=== PATIENT | male | born 1990 | race Caucasian/White ===

== ENCOUNTER 2018-03-22 23:37 | Emergency (ER) | payer MEDICAID, OTHER ==
[~2018-03-22] VITALS: Ht 188 cm; Wt 108.9 kg
--- NOTE | 2018-03-22 23:41 | NUR ---
PT BIBA TO ER BED 12
--- NOTE | 2018-03-22 23:43 | NUR ---
PATIENT IS A 27 Y/O MALE WHO PRESENTS TO THE ED C/O ALTERED LEVEL OF CONSCIOUSNESS. PER PD PT WAS BEING COMBATIVE S/P TAKING METH. PT APPEARS FLUSHED AND RED. PT IN NO SIGNS OF CP, SOB, N/V/D. PT ALTERED, BEING COMBATIVE AND YELLING OBSCENITIES, RR EVEN/UNLABORED. PT REPOSITIONED FOR COMFORT, BED IN LOWEST POSITION. ER MD DR. MOONEY NOTIFIED. WILL CONTINUE TO MONITOR.
[2018-03-22] MEDS ORDERED: LORazepam 2 MG/ML VIAL IM ONE (23:45)
[2018-03-22] MEDS ORDERED: diphenhydrAMINE 50 MG/ML VIAL IM ONE (23:45)
[2018-03-22] MEDS ORDERED: NACL 0.9% 1,000 ML IV ONE (23:45)
[2018-03-22] MEDS ORDERED: HALOPERIDOL IM 5 MG/ML VIAL IM ONE (23:45)
--- NOTE | 2018-03-22 23:45 | NUR ---
PD AT BEDSIDE. PT BEING COMBATIVE AND YELLING.
[2018-03-22] MEDS ORDERED: diphenhydrAMINE 50 MG/ML VIAL ONE (23:48)
[2018-03-22] MEDS ORDERED: HALOPERIDOL IM 5 MG/ML VIAL ONE (23:48)
[2018-03-22] MEDS ORDERED: LORazepam 2 MG/ML VIAL ONE (23:49)
[2018-03-23] MEDS ORDERED: NACL 0.9% 1,000 ML IV ONE ×2 (00:20→03:25)
[2018-03-23 00:57] LABS: BASOPHILS # (AUTO) 0.2 K/uL (0.00-0.22); BASOPHILS % (AUTO) 1.9 % (0.0-2.0); EOSINOPHILS # (AUTO) 0.1 K/uL (0-0.4); HEMATOCRIT 44.4 % (36-52); HEMOGLOBIN 14.9 g/dL (12.0-18.0); LYMPHOCYTES # (AUTO) 0.9 K/uL (2.0-11.5); LYMPHOCYTES % (AUTO) 8.5 % (20.5-51.1); MEAN CORPUSCULAR HEMOGLOBIN 29 pg (27-31); MEAN CORPUSCULAR HGB CONC 34 g/dL (33-37); MEAN CORPUSCULAR VOLUME 86.8 fL (80-94); MONOCYTES # (AUTO) 0.8 K/uL (0.8-1.0); MONOCYTES % (AUTO) 7.7 % (1.7-9.3); NEUTROPHILS % (AUTO) 80.9 % (42.2-75.2); PLATELET COUNT (AUTO) 163 K/uL (140-450); RED BLOOD CELL COUNT(AUTO) 5.12 MIL/uL (4.20-6.10); RED CELL DISTRIBUTION WIDTH 12.5 % (11.6-13.7)
--- NOTE | 2018-03-23 01:00 | NUR ---
PT REFUSING TO GIVE URINE AT THIS TIME.
--- NOTE | 2018-03-23 02:01 | NUR ---
CRITICAL LAB: LACTIC ACID 3.6 DR MOONEY NOTIFIED.
[2018-03-23 02:18] LABS: ANION GAP 17.1 (8-16); CHLORIDE 102 mmol/L (98-107); GLUCOSE 202 mg/dL (74-106); POTASSIUM 3.1 mmol/L (3.5-5.1); SODIUM SERUM 140 mmol/L (136-145); UREA NITROGEN, BLOOD 12 mg/dL (7-18)
[2018-03-23 02:19] LABS: CREATININE 1.4 mg/dL (0.7-1.3); GFR ARICAN-AMERICAN 78 mL/min (>90)
[2018-03-23 02:20] LABS: ACETAMINOPHEN < 0.5 ug/ml (10-30); ALBUMIN 3.8 g/dL (3.4-5.0); ASPARTATE AMINOTRANSFERASE 17 U/L (15-37); SALICYLATE < 2.8 mg/dL (2.8-20.0); TOTAL BILIRUBIN 0.4 mg/dL (0.0-1.0)
--- NOTE | 2018-03-23 02:50 | NUR ---
Delia lynch in [facility] - 03/23/18 at 0418 by MEDGAURAVV PATIENT PROVIDED URINE AT THIS TIME.
--- NOTE | 2018-03-23 03:00 | NUR ---
PT RESTING AT THIS TIME. PD AT BEDSIDE.
[2018-03-23] MEDS ORDERED: POTASSIUM CHLORIDE 10 MEQ TABER PO ONE (03:25)
--- NOTE | 2018-03-23 03:58 | NUR ---
PATIENT PROVIDED URINE AT THIS TIME.
[2018-03-23] MEDS ORDERED: NACL 0.9% 500 ML IV ONE (04:20)
--- NOTE | 2018-03-23 04:30 | NUR ---
PATIENT RESTING AT THIS TIME. NO SIGNS OF DISTRESS.
[2018-03-23 05:20] LABS: BARBITURATE, URINE NEGATIVE ng/ml (NEG <=200)
[2018-03-23 05:21] LABS: BENZODIAZEPINE, URINE NEGATIVE ng/mL (NEG <=200); CANNABINOID, URINE POSITIVE ng/mL (NEG <=50); COCAINE, URINE POSITIVE ng/mL (NEG <=300); OPIATE, URINE NEGATIVE ng/mL (NEG <=2000); PHENCYCLIDINE SCREEN,URINE NEGATIVE ng/mL (NEG <=25)
[2018-03-23 05:45] VITALS: BP 104/57
--- NOTE | 2018-03-23 05:45 | NUR ---
Patient discharged with v/s stable. Pt ambulatory. Written and verbal after care instructions given and explained. Patient verbalized understanding. Police with in custody. All questions addressed prior to discharge. Advised to follow up with PMD.
[2018-03-23 06:09] LABS: APPEARANCE,URINE CLEAR (CLEAR); COLOR,URINE YELLOW (YELLOW); PH,URINE 6.5 (5.0-9.0); UGLUCOSE NEGATIVE (NEGATIVE)
[2018-03-23 06:10] LABS: BILIRUBIN,URINE NEGATIVE (NEGATIVE); BLOOD, URINE NEGATIVE (NEGATIVE); LEUKOCYTE ESTERASE ,URINE NEGATIVE (NEGATIVE); NITRITE, URINE NEGATIVE (NEGATIVE)
[2018-03-23 06:16] LABS: CKMB RELATIVE INDEX 0.7 (0.0-2.5); CREATINE KINASE MB 3.8 ng/mL (0-3.6)
== END 2018-03-23 05:45 ==
LOC: MED 23:37
DX: F14.10 Cocaine abuse, uncomplicated (principal); R41.0 Disorientation, unspecified; E86.0 Dehydration; N17.9 Acute kidney failure, unspecified; M62.82 Rhabdomyolysis
CPT/HCPCS: 36415; 80053; 80305; 81003; 82550; 82553; 83605; 84484; 85025; 87040; 96360; 96361; 96372; 99284; C1758; G0480; G0482; J1200; J1630; J2060